=== PATIENT | female | born 1985 | race Caucasian/White ===

== ENCOUNTER 2019-03-19 23:24 | Emergency (ER) | payer MEDICAID ==
[~2019-03-19] VITALS: Ht 157.5 cm; Wt 61.0 kg
[2019-03-20] MEDS ORDERED: SODIUM CHLORIDE 0.9% 1,000 ML IV ONE (01:15)
[2019-03-20] MEDS ORDERED: ONDANSETRON HCL 4MG/2ML INJ IV STA (01:15)
[2019-03-20] MEDS ORDERED: MORPHINE SULFATE 4 MG/ML CPJ (NOT FOR IM USE) IV STA (01:15)
[2019-03-20 02:20] LABS: BASOPHILS % 0.8 % (0.0-2.0); EOSINOPHILS % 0.3 % (0.0-5.0); HEMOGLOBIN. 11.9 g/dL (12.0-16.0); LYMPHOCYTES % 13.7 % (20.0-50.0); MEAN CORPUSCULAR HEMOGLOBIN 30.7 pg (28.0-32.0); MEAN CORPUSCULAR VOLUME 90.4 fL (81.0-99.0); MEAN PLATELET VOLUME 7.7 fl (7.4-10.4); MONOCYTES % 3.4 % (2.0-8.0); NEUTROPHILS % 81.8 % (40.0-76.0); PLATELET 335 x1000/uL (130-400); RED BLOOD CELL COUNT 3.87 mill/uL (4.2-5.4); RED CELL DISTRIBUTION WIDTH 13.5 % (11.6-14.6)
[2019-03-20 02:22] LABS: CHLORIDE 110 mEq/L (98-107)
[2019-03-20 02:27] LABS: CLARITY URINE CLEAR (CLEAR); COLOR URINE YELLOW (YELLOW); KETONES URINE NEGATIVE (NEGATIVE); LEUKOCYTE ESTERASE URINE TRACE (NEGATIVE); NITRITE URINE NEGATIVE (NEGATIVE); OCCULT BLOOD URINE TRACE (NEGATIVE); PH URINE 6.5 (4.5-8.0); PROTEIN URINE NEGATIVE (NEGATIVE); UROBILINOGEN URINE 0.2 E.U./dL (0.2-1.0)
[2019-03-20] MEDS ORDERED: IOHEXOL-300 100 ML BOTTLE ONE (04:20)
[2019-03-20 05:20] VITALS: BP 105/59
== END 2019-03-20 05:47 | disposition home or self-care (01) ==
LOC: ER 23:24
DX: N13.2 Hydronephrosis with renal and ureteral calculous obstruction (principal)
CPT/HCPCS: 36415; 74177; 76705; 80053; 81003; 81025; 83605; 83690; 85025; 96361; 96374; 96375; 99284; J2270; J2405; J7030; Q9967; Z7610

== ENCOUNTER 2023-06-26 06:09 | Emergency (ER) | payer MEDICAID ==
[~2023-06-26] VITALS: Ht 154.9 cm; Wt 68.2 kg
[~2023-06-26 06:09] MED LIST: CIPR500T25 PO; HYDR-4001 PO; ONDA4TAB5 MT
[2023-06-26 06:20] VITALS: BP 109/68; PULSE 78; RESP 16; TEMP 97.8; O2SAT 99
[2023-06-26] MEDS ORDERED: LIDOCAINE 5% PATCH TOP SCH (06:45)
== END 2023-06-26 14:14 | disposition home or self-care (01) ==
LOC: ER 06:09
DX: M54.9 Dorsalgia, unspecified (principal); M25.512 Pain in left shoulder
CPT/HCPCS: 99283

== ENCOUNTER 2024-05-01 16:40 | Emergency (ER) | payer MEDICAID, OTHER ==
[~2024-05-01] VITALS: Ht 162.6 cm; Wt 70.0 kg
[2024-05-01 16:45] VITALS: O2SAT 98
[2024-05-01] MEDS ORDERED: DEXAMETHASONE 1MG TABLET PO ONE (22:00)
[2024-05-01] MEDS: DEXAMETHASONE 4MG TABLET PO NR (22:19)
[2024-05-01 22:25] VITALS: BP 139/72; PULSE 72; RESP 19; TEMP 37.16964; O2SAT 100
== END 2024-05-01 22:27 | disposition home or self-care (01) ==
LOC: ER 16:40
DX: J02.8 Acute pharyngitis due to other specified organisms (principal)
CPT/HCPCS: 99284; 70490; J8540

== ENCOUNTER 2024-05-07 09:08 | Emergency (ER) | payer OTHER ==
[~2024-05-07] VITALS: Ht 162.6 cm; Wt 65.0 kg
[2024-05-07 09:11] VITALS: O2SAT 100
[2024-05-07 09:26] VITALS: BP 110/74; PULSE 70; RESP 18; O2SAT 98
[2024-05-07 10:17] LABS: BASOPHILS % 1.2 % (0.0-2.0); EOSINOPHILS % 1.1 % (0.0-5.0); HEMATOCRIT. 38.9 % (36.0-48.0); LYMPHOCYTES % 28.1 % (20.0-50.0); MEAN CORPUSCULAR HEMOGLOBIN 31.1 pg (28.0-32.0); MEAN CORPUSCULAR HGB CONC 33.3 g/dL (31.0-37.0); MEAN CORPUSCULAR VOLUME 93.3 fL (81.0-99.0); MEAN PLATELET VOLUME 7.7 fl (7.4-10.4); MONOCYTES % 6.7 % (2.0-8.0); NEUTROPHILS % 62.9 % (40.0-76.0); PLATELET 323 x1000/uL (130-400); RED BLOOD CELL COUNT 4.17 mill/uL (4.2-5.4); WHITE BLOOD COUNT 6.1 x1000/uL (4.5-11.0)
[2024-05-07 10:28] LABS: CARBON DIOXIDE 23 mEq/L (21-32); CHLORIDE 107 mEq/L (98-107); POTASSIUM 3.8 mEq/L (3.5-5.1); SODIUM 137 mEq/L (136-145)
[2024-05-07 10:30] LABS: CALCIUM 9.2 mg/dL (8.7-10.4)
[2024-05-07 10:34] LABS: CREATININE 0.5 mg/dL (0.6-1.0); GLUCOSE 94 mg/dL (70-105); UREA NITROGEN BLOOD 11 mg/dL (9-23)
[2024-05-07 10:47] VITALS: TEMP 98.6
[2024-05-07] MEDS: ACETAMINOPHEN 500MG TABLET PO ONE (10:47)
[2024-05-07] MEDS: ONDANSETRON 4MG ODT PO ONE (10:47)
[2024-05-07 10:49] LABS: ETHANOL BLOOD < 10 mg/dL (<10); TROPONIN I HIGH SENSITIVITY < 4 ng/L (3.0-34)
[2024-05-07 10:57] LABS: HCG SCREEN NEGATIVE
[2024-05-07] MEDS ORDERED: ACET-2708 MT (11:50)
[2024-05-07] MEDS ORDERED: IBUP-2029 MT (11:50)
== END 2024-05-07 12:14 | disposition home or self-care (01) ==
LOC: ER 09:08
DX: R51.9 Headache, unspecified (principal)
CPT/HCPCS: 80048; 80320; 84703; 85025; 84484; 36415; 93005; 99284; Q0162; G0480

== ENCOUNTER 2024-07-05 17:22 | Emergency (ER) | payer OTHER ==
[~2024-07-05] VITALS: Ht 157.5 cm; Wt 69.8 kg
[~2024-07-05 17:22] MED LIST changes: +ACET-2708 MT; +IBUP-2029 MT
[2024-07-05 17:27] VITALS: BP 127/84; PULSE 72; RESP 16; TEMP 97.9; O2SAT 100
[2024-07-05] MEDS: DEXAMETHASONE 10 MG/ML VIAL PO ONE (20:15)
[2024-07-05 21:06] LABS: BASOPHILS % 1.5 % (0.0-2.0); HEMOGLOBIN. 12.2 g/dL (12.0-16.0); LYMPHOCYTES % 31.6 % (20.0-50.0); MEAN CORPUSCULAR HEMOGLOBIN 31.5 pg (28.0-32.0); MEAN CORPUSCULAR VOLUME 92.6 fL (81.0-99.0); MEAN PLATELET VOLUME 8.1 fl (7.4-10.4); MONOCYTES % 10.3 % (2.0-8.0); NEUTROPHILS % 54.6 % (40.0-76.0); PLATELET 351 x1000/uL (130-400); RED BLOOD CELL COUNT 3.89 mill/uL (4.2-5.4); RED CELL DISTRIBUTION WIDTH 12.6 % (11.6-14.6); WHITE BLOOD COUNT 6.6 x1000/uL (4.5-11.0)
[2024-07-05 21:11] LABS: CHLORIDE 105 mEq/L (98-107); POTASSIUM 3.3 mEq/L (3.5-5.1); SODIUM 139 mEq/L (136-145)
[2024-07-05 21:12] LABS: CARBON DIOXIDE 26 mEq/L (21-32)
[2024-07-05 21:13] LABS: CALCIUM 9.2 mg/dL (8.7-10.4)
[2024-07-05 21:16] LABS: INR 0.9; PROTHROMBIN TIME 10.3 sec (9.6-11.0)
[2024-07-05 21:17] LABS: CREATININE 0.6 mg/dL (0.6-1.0); GLUCOSE 98 mg/dL (70-105)
[2024-07-05 21:18] LABS: UREA NITROGEN BLOOD 8 mg/dL (9-23)
[2024-07-05 21:19] LABS: TROPONIN I HIGH SENSITIVITY < 4 ng/L (3.0-34)
[2024-07-05] MEDS ORDERED: BENZ1LOZ73 MT (21:25)
[2024-07-05] MEDS ORDERED: IBUP-2029 MT (21:25)
[2024-07-05] MEDS ORDERED: GUAI-450 MT (21:25)
== END 2024-07-05 22:05 | disposition home or self-care (01) ==
LOC: ER 17:22
DX: J06.9 Acute upper respiratory infection, unspecified (principal); R06.02 Shortness of breath; R07.89 Other chest pain; Z79.899 Other long term (current) drug therapy
CPT/HCPCS: 99285; 71045; 80048; 85025; 85610; 84484; 36415; 93005; J1100

== ENCOUNTER 2024-09-22 15:06 | Emergency (ER) | payer OTHER ==
[~2024-09-22] VITALS: Ht 162.6 cm; Wt 75.0 kg
[~2024-09-22 15:06] MED LIST changes: +BENZ1LOZ73 MT; +GUAI-450 MT
[2024-09-22 15:46] VITALS: O2SAT 100
[2024-09-22] MEDS: MAGNESIUM/ALUMINUM HYDROXIDE/SIMETHICONE 30ML UDC PO STA (17:29)
[2024-09-22] MEDS: ACETAMINOPHEN 325MG TABLET PO STA (17:29)
[2024-09-22 17:41] LABS: HEMATOCRIT. 40.6 % (36.0-48.0); HEMOGLOBIN. 13.2 g/dL (12.0-16.0); MEAN CORPUSCULAR HEMOGLOBIN 30.2 pg (28.0-32.0); MEAN CORPUSCULAR HGB CONC 32.4 g/dL (31.0-37.0); MEAN CORPUSCULAR VOLUME 93.3 fL (81.0-99.0); MEAN PLATELET VOLUME 8.6 fl (7.4-10.4); PLATELET 322 x1000/uL (130-400); RED BLOOD CELL COUNT 4.35 mill/uL (4.2-5.4); RED CELL DISTRIBUTION WIDTH 13.3 % (11.6-14.6); WHITE BLOOD COUNT 13.6 x1000/uL (4.5-11.0)
[2024-09-22 17:42] LABS: DIFFERENTIAL COMMENT 1
[2024-09-22] MEDS: ONDANSETRON HCL 4MG/2ML INJ IV STA (17:43)
[2024-09-22] MEDS: FAMOTIDINE 20MG/2ML VIAL IV STA (17:43)
[2024-09-22 17:48] LABS: CHLORIDE 107 mEq/L (98-107); POTASSIUM 3.6 mEq/L (3.5-5.1); SODIUM 139 mEq/L (136-145)
[2024-09-22 17:49] LABS: CARBON DIOXIDE 18 mEq/L (21-32)
[2024-09-22 17:50] LABS: CALCIUM 9.5 mg/dL (8.7-10.4)
[2024-09-22 17:51] LABS: PROTHROMBIN TIME 10.3 sec (9.6-11.0)
[2024-09-22 17:53] LABS: HCG SCREEN NEGATIVE
[2024-09-22 17:54] LABS: CREATININE 0.7 mg/dL (0.6-1.0)
[2024-09-22 17:55] LABS: GLUCOSE 98 mg/dL (70-105); UREA NITROGEN BLOOD 14 mg/dL (9-23)
[2024-09-22 17:56] LABS: ALANINE AMINOTRANSFERASE 48 IU/L (10-49); ALBUMIN 4.8 g/dL (3.2-4.8); ASPARTATE AMINOTRANSFERASE 33 IU/L (<34)
[2024-09-22 17:57] LABS: BILIRUBIN DIRECT 0.1 mg/dL (<=3.0); BILIRUBIN TOTAL 0.6 mg/dL (0.1-1.0); PROTEIN TOTAL 8.6 g/dL (6.0-8.3)
[2024-09-22 18:02] LABS: PLATELET ESTIMATE NORMAL
[2024-09-22 18:39] LABS: CLARITY URINE CLOUDY (CLEAR); COLOR URINE ORANGE (YELLOW); GLUCOSE URINE NEGATIVE (NEGATIVE); KETONES URINE 3+ (NEGATIVE); LEUKOCYTE ESTERASE URINE TRACE (NEGATIVE); NITRITE URINE NEGATIVE (NEGATIVE); OCCULT BLOOD URINE 3+ (NEGATIVE); PH URINE 5.5 (4.5-8.0); PROTEIN URINE 1+ (NEGATIVE); SPECIFIC GRAVITY URINE 1.031 (1.005-1.030); UROBILINOGEN URINE 0.2 E.U./dL (0.2-1.0)
[2024-09-22 19:02] LABS: BACTERIA URINE 1+; SQUAMOUS EPITHELIAL CELL URINE 1+ /lpf (RARE/1+)
[2024-09-22] MEDS ORDERED: CEPH500T MT (19:09)
[2024-09-22 19:53] VITALS: BP 100/65; PULSE 71; RESP 18; TEMP 36.7; O2SAT 100
== END 2024-09-22 19:54 ==
LOC: ER 15:06
DX: R10.13 Epigastric pain (principal); Z79.899 Other long term (current) drug therapy
CPT/HCPCS: 80076; 80048; 81003; 84703; 83690; 85025; 85610; 36415; 76705; 96374; 96375; 99285; J3490; J2405; Z7610